=== PATIENT | male | born 1960 | race Caucasian/White ===

== ENCOUNTER 2016-07-12 15:19 | Emergency (ER) | payer MEDICARE ==
[~2016-07-12] VITALS: Ht 172.7 cm; Wt 117.9 kg
[2016-07-12] MEDS ORDERED: LISI10TA4 (15:30)
[2016-07-12] MEDS ORDERED: HYDR25TA6 (15:30)
[2016-07-12] MEDS ORDERED: METO-209 (15:30)
[2016-07-12] MEDS ORDERED: ASPI1TAB PO (15:31)
[2016-07-12] MEDS ORDERED: ONDANSETRON 4MG/2ML VIAL (J2405) IV ONE (15:45)
[2016-07-12] MEDS ORDERED: KETOROLAC 30 MG/ML VIAL (J1885) IV ONE (15:45)
[2016-07-12] MEDS ORDERED: NS 1,000 ML IV ONE (15:45)
[2016-07-12 16:12] LABS: BASO % 0.4 % (0.0-1.0); EOS # 0.2 K/mm3 (0.0-0.50); EOS % 2.1 % (0.0-3.0); LARGE UNSTAINED CELL # 0.1 K/mm3 (0.0-0.4); LARGE UNSTAINED CELL % 1.2 % (0.0-4.0); LYMPH # 2.2 K/mm3 (1.5-4.5); LYMPH % 24.2 % (24.0-44.0); MEAN CORPUSCULAR HEMOGLOBIN 30.3 pg (27.0-33.0); MEAN CORPUSCULAR HGB CONC 35.7 g/dl (32.0-36.5); MONO # 0.5 K/mm3 (0.0-0.8); MONO % 5.6 % (0.0-5.0); NEUTROPHILS # 5.8 K/mm3 (1.8-7.7); NEUTROPHILS % 66.5 % (36.0-66.0); PLATELET COUNT, AUTOMATED 210 k/mm3 (150-450); RED CELL DISTRIBUTION WIDTH 14.2 % (11.5-14.5); WHITE BLOOD COUNT 8.7 K/mm3 (4.0-10.0)
--- NOTE | 2016-07-12 16:39 | REP ---
CT ABDOMEN PELVIS WITHOUT CONTRAST: CT abdomen and pelvis performed without oral or IV contrast, with sagittal and coronal reconstruction images also performed. Visualized lung bases are clear. Liver, spleen, adrenals, pancreas are grossly unremarkable. There is a cyst in the upper pole of the right kidney 4.5 cm in diameter with a smaller cyst in the lower pole. A small cyst is also seen in the lower pole of the left kidney. There is no evidence or renal or ureteral calculus with no hydroureteronephrosis. There is mild atherosclerotic calcification of a abdominal aorta without aneurysm. There is no adenopathy. There is no free air or free fluid. No bowel wall thickening is seen. No pelvic mass is seen. Urinary bladder is not distended and not well evaluated. There are degenerative changes of the spine. IMPRESSION: No CT evidence of appendicitis or colitis. Bilateral renal cysts. No renal or ureteral calculi and no hydroureteronephrosis. No free air or free fluid. Signed by Morro Messer MD 07/12/2016 07:52 P
[2016-07-12 16:57] LABS: ANION GAP 6 MEQ/L (8-16); BLOOD UREA NITROGEN 21 MG/DL (7-18); CALCIUM LEVEL 8.2 MG/DL (8.5-10.1); CARBON DIOXIDE LEVEL 25 MEQ/L (21-32); CHLORIDE LEVEL 107 MEQ/L (98-107); CREATININE FOR GFR 1.06 MG/DL (0.70-1.30); GLOMERULAR FILTRATION RATE > 60.0 (>56); GLUCOSE, FASTING 98 MG/DL (70-105); POTASSIUM SERUM 3.8 MEQ/L (3.5-5.1); SODIUM LEVEL 138 MEQ/L (136-145)
[2016-07-12] MEDS ORDERED: MIRA3350 PO (17:09)
[2016-07-12] MEDS ORDERED: SIME1CAP PO (17:09)
[2016-07-12 17:18] VITALS: BP 140/95
== END 2016-07-12 17:27 | disposition home or self-care (01) ==
LOC: M ED 15:53
DX: R14.1 Gas pain (principal); K59.00 Constipation, unspecified; I10 Essential (primary) hypertension; J45.909 Unspecified asthma, uncomplicated; Z79.899 Other long term (current) drug therapy; Z79.82 Long term (current) use of aspirin
CPT/HCPCS: 74176; 80048; 81001; 85025; 96374; 96375; 99283; J1885; J2405

== ENCOUNTER → 2016-08-26 | Outpatient (REF) | payer MEDICARE, OTHER ==
[~2016-08-26] MED LIST: ASPI1TAB PO; HYDR25TA6; LISI10TA4; METO1TAB33; MIRA3350 PO; SIME1CAP PO
== END ==
LOC: M SFHCSACK 09:03
PROVIDERS: ATTEND Physician Assistant
DX: I10 Essential (primary) hypertension (principal); Z13.220 Encounter for screening for lipoid disorders; Z13.21 Encounter for screening for nutritional disorder; Z53.8 Procedure and treatment not carried out for other reasons; Z23 Encounter for immunization
CPT/HCPCS: 90471; 90670; 90715; G0009

== ENCOUNTER 2017-03-23 14:56 | Emergency (ER) | payer SELFPAY, MEDICARE ==
[2017-03-23] MEDS: predniSONE 20 MG TAB PO (16:15)
[2017-03-23] MEDS: DICYCLOMINE 10 MG CAP PO (16:30)
[2017-03-23] MEDS: LEVALBUTEROL 1.25 MG/0.5 ML CONCENTRATE NEB NEB (16:34)
[2017-03-23] MEDS: AUGMENTIN 875 MG TAB PO (17:02)
== END 2017-03-23 17:08 | disposition home or self-care (01) ==
LOC: M ED 14:56
DX: J01.90 Acute sinusitis, unspecified (principal); J20.9 Acute bronchitis, unspecified; I10 Essential (primary) hypertension; J44.0 Chronic obstructive pulmonary disease with (acute) lower respiratory infection; J45.909 Unspecified asthma, uncomplicated; Z79.899 Other long term (current) drug therapy; Z79.82 Long term (current) use of aspirin
CPT/HCPCS: 71046

== ENCOUNTER → 2017-12-08 | Outpatient (CLI) | payer SELFPAY ==
[2017-12-08 17:44] LABS: BASO % 0.5 % (0.0-1.0); EOS # 0.1 10^3/uL (0.0-0.50); EOS % 1.4 % (0.0-3.0); HEMATOCRIT 46.1 % (42.0-52.0); HEMOGLOBIN 16.3 g/dl (13.5-17.5); IMMATURE GRANULOCYTE % 0.2 % (0-3.0); LYMPH # 1.9 10^3/uL (1.5-4.5); LYMPH % 29.5 % (24.0-44.0); MEAN CORPUSCULAR HEMOGLOBIN 29.7 pg (27.0-33.0); MEAN CORPUSCULAR HGB CONC 35.4 g/dl (32.0-36.5); MEAN CORPUSCULAR VOLUME 84.1 fl (80.0-96.0); MONO # 0.4 10^3/uL (0.0-0.8); MONO % 5.9 % (0.0-5.0); NEUTROPHILS # 3.9 10^3/uL (1.8-7.7); NEUTROPHILS % 62.5 % (36.0-66.0); PLATELET COUNT, AUTOMATED 223 10^3/uL (150-450); RED BLOOD COUNT 5.48 10^6/uL (4.30-6.10); RED CELL DISTRIBUTION WIDTH 13.8 % (11.5-14.5); WHITE BLOOD COUNT 6.3 10^3/uL (4.0-10.0)
[2017-12-08 18:27] LABS: ALBUMIN/GLOBULIN RATIO 1.21 (1.00-1.93); ALKALINE PHOSPHATASE 46 U/L (45-117); ALT/SGPT 34 U/L (12-78); ANION GAP 10 MEQ/L (8-16); AST/SGOT 22 U/L (7-37); BILIRUBIN,TOTAL 0.6 MG/DL (0.2-1.0); BLOOD UREA NITROGEN 18 MG/DL (7-18); CALCIUM LEVEL 8.9 MG/DL (8.5-10.1); CARBON DIOXIDE LEVEL 25 MEQ/L (21-32); CHLORIDE LEVEL 105 MEQ/L (98-107); CHOLESTEROL LEVEL 117 MG/DL (<200); CREATININE FOR GFR 1.08 MG/DL (0.70-1.30); GLOMERULAR FILTRATION RATE > 60.0 (>56); GLUCOSE, FASTING 93 MG/DL (70-100); HDL CHOLESTEROL 45 MG/DL (>40); LDL CHOLESTEROL 53 MG/DL (<100); NON-HDL-C 72 MG/DL; POTASSIUM SERUM 5.3 MEQ/L (3.5-5.1); SODIUM LEVEL 140 MEQ/L (136-145); TOTAL PROTEIN 7.3 GM/DL (6.4-8.2); TRIGLYCERIDES LEVEL 95 MG/DL (<150)
[2017-12-08 18:36] LABS: TOTAL 25(OH) VITAMIN D 12.1 NG/ML (30.0-100.0)
== END ==
LOC: M WUC 14:25
DX: I10 Essential (primary) hypertension (principal); Z13.220 Encounter for screening for lipoid disorders; Z13.21 Encounter for screening for nutritional disorder
CPT/HCPCS: 80053

== ENCOUNTER 2018-01-28 12:34 | Emergency (ER) | payer BC, SELFPAY ==
[2018-01-28] MEDS: diphenhydrAMINE INJ 50MG/ML VIAL (J1200) IV (13:23)
[2018-01-28] MEDS: methylPREDNISolone INJ 125 MG/2 ML VIAL (J2930) IV (13:23)
[2018-01-28] MEDS: NS 1,000 ML IV (13:24)
[2018-01-28] MEDS: FAMOTIDINE INJ 20MG/2ML VIAL (S0028) IVP (13:26)
== END 2018-01-28 14:41 | disposition home or self-care (01) ==
LOC: M ED 12:34
DX: R21 Rash and other nonspecific skin eruption (principal); L29.9 Pruritus, unspecified; T78.40XA Allergy, unspecified, initial encounter; X58.XXXA Exposure to other specified factors, initial encounter; I10 Essential (primary) hypertension; J44.9 Chronic obstructive pulmonary disease, unspecified; Z79.899 Other long term (current) drug therapy; Z79.82 Long term (current) use of aspirin
CPT/HCPCS: J1200

== ENCOUNTER → 2020-11-05 | Outpatient (CLI) | payer BC, MEDICARE, OTHER ==
[~2020-11-05] MED LIST changes: +ADV250INH INH; -ASPI1TAB PO; +ASPI81TA26 PO; +AUGM875T28 PO; +BENA25CA4 PO; +BENT20TA PO; +CLAR1TAB2 PO; +LISI10TA22; -LISI10TA4; +PEPC1TAB5 PO; +PRED10TA2 PO; +PRED20TA PO; +PROAAER10 INH
--- NOTE | 2020-11-05 10:54 | REP ---
INDICATION: LOW BACK PAIN. COMPARISON: 03/27/2014 TECHNIQUE: AP, lateral, flexion/extension views. FINDINGS: Alignment and lordosis maintained without acute fracture/compression injury or subluxation. Advanced degenerative changes at L5-S1 includes endplate sclerosis, marginal spurring, disc space narrowing and facet hypertrophy. Moderate less pronounced similar findings at L4-5 noted. Frontal radiograph best demonstrates chronic levoconvex scoliosis along with left-sided bridging osteophyte at the L2-3 level. Remainder of the examination appears normal. IMPRESSION: Degenerative changes as noted above progressive from prior examination. <Electronically signed by Syed Whittaker > 11/05/20 1053
== END ==
LOC: M SOG 10:17
PROVIDERS: ATTEND Orthopaedic Surgery
DX: M54.5 Low back pain (principal); M51.37 Other intervertebral disc degeneration, lumbosacral region

== ENCOUNTER 2020-11-06 07:05 | Outpatient (RCR) | payer OTHER, BC | END 2020-11-10 | LOC: M PT 07:05 | PROVIDERS: ATTEND Orthopaedic Surgery | DX: M47.26 Other spondylosis with radiculopathy, lumbar region (principal) ==